=== PATIENT | male | born 1955 | race Caucasian/White ===

== ENCOUNTER → 2024-09-17 13:30 | Outpatient (REF) | payer OTHER, SELFPAY | LOC: RCS 13:30 | PROVIDERS: ATTENDING PHYSICIAN Internal Medicine; FAMILY PHYSICIAN Family Medicine | DX: I25.10 Atherosclerotic heart disease of native coronary artery without angina pectoris (principal); I25.5 Ischemic cardiomyopathy | CPT/HCPCS: 93306 ==

== ENCOUNTER → 2025-01-28 11:27 | Outpatient (REF) | payer OTHER, SELFPAY | LOC: DHSLP 11:27 | PROVIDERS: ATTENDING PHYSICIAN Physician Assistant | DX: G47.33 Obstructive sleep apnea (adult) (pediatric) (principal) | CPT/HCPCS: 95800 ==

== ENCOUNTER → 2025-04-16 08:56 | Outpatient (REF) | payer OTHER, SELFPAY | LOC: HWRAD 08:56 | PROVIDERS: ATTENDING PHYSICIAN Family Medicine | DX: L02.412 Cutaneous abscess of left axilla (principal) | CPT/HCPCS: 76604 ==